=== PATIENT | female | born 1990 | race Hispanic/Latino ===

== ENCOUNTER 2021-11-09 07:59 | Inpatient (IN) | payer MEDICAID ==
[2021-11-02 15:03] LABS: BASOPHILS % (AUTO) 0.7 % (0.0-5.0); EOSINOPHILS % (AUTO) 0.8 % (0.0-8.0); HEMATOCRIT 37.3 % (36-48); LYMPHOCYTES % (AUTO) 48.7 % (21.0-51.0); MEAN CORPUSCULAR HEMOGLOBIN 29.4 pg (27.0-33.0); MEAN CORPUSCULAR HGB CONC 32.7 g/dL (32.0-36.0); MEAN CORPUSCULAR VOLUME 89.9 fL (79-99); MONOCYTES % (AUTO) 5.4 % (3.0-13.0); NEUTROPHILS % (AUTO) 44.3 % (40.0-77.0); PLATELET COUNT (AUTO) 271 K/uL (130-400); RED BLOOD CELL COUNT(AUTO) 4.15 MIL/uL (4.00-5.50); RED CELL DISTRIBUTION WIDTH 13.5 % (11.0-15.5); WHITE BLOOD COUNT (AUTO) 9.6 K/uL (4.8-10.8)
[2021-11-02 15:09] LABS: INR 0.93 (0.85-1.15); PROTHROMBIN TIME 9.8 SEC (9.6-11.6)
[2021-11-02 15:11] LABS: PARTIAL THROMBOPLASTIN TIME 22.2 SEC (26.3-35.5)
[2021-11-02 15:17] LABS: CREATININE 0.7 mg/dL (0.5-1.5); POTASSIUM 4.4 mmol/L (3.5-5.1)
[2021-11-05 14:38] VITALS: BP 113/80
[2021-11-09] VITALS (27 sets, daily range): BP systolic 109–150; BP diastolic 55–86
[~2021-11-09] VITALS: Ht 162.6 cm; Wt 70.4 kg
[~2021-11-09 07:59] MED LIST: 0.9% NACL 500ML IV.SOLN 500 ML IV SCH; ADAL40PE SQ; DULO20CA18 PO; GABA300C PO; IRON1CAP35 PO; MULT-1330 PO; NORE1PAT10 TD; TRAZ-187 PO
[2021-11-09] MEDS ORDERED: LACTATED RINGERS 1000ML 1,000 ML IV ONE (08:30)
[2021-11-09] MEDS: CEFAZOLIN SODIUM 1 GM VIAL IVP SCH ×3 (08:30→18:55)
[2021-11-09] MEDS ORDERED: SUCCINYLCHOLINE CHLORIDE 20 MG/ML 10 ML VIAL ONE (10:09)
[2021-11-09] MEDS ORDERED: FENTANYL CITRATE PF 50 MCG/1 ML 2ML VIAL ONE ×2 (10:10→12:02)
[2021-11-09] MEDS ORDERED: PROPOFOL 10 MG/ML 20ML VIAL IV ONE (10:10)
[2021-11-09] MEDS ORDERED: MIDAZOLAM HCL 1 MG/ML 2ML VIAL ONE (10:10)
[2021-11-09] MEDS ORDERED: BUPIVACAINE/PF 0.5% 30ML VIAL ONE (10:43)
[2021-11-09] MEDS ORDERED: BUPIVACAINE/PF 0.5% 10ML VIAL ONE (10:43)
[2021-11-09] MEDS ORDERED: ROCURONIUM 10MG/1ML SYR 10 MG/ML ML ONE (11:21)
[2021-11-09] MEDS ORDERED: EPHEDRINE SULFATE 50 MG/ML AMPULE ONE ×2 (11:37→13:25)
[2021-11-09] MEDS ORDERED: HYDROMORPHONE 1 MG INJ ONE ×2 (13:57→14:15)
[2021-11-09] MEDS ORDERED: MEPERIDINE-PF 25 MG/ML SYG ONE (14:33)
[2021-11-09] MEDS ORDERED: ONDANSETRON 4MG INJ ONE (14:54)
[2021-11-09] MEDS: LACTATED RINGERS 1000ML 1,000 ML IV SCH (15:54)
[2021-11-09] MEDS ORDERED: ADALIMUMAB 40 MG SQ SCH (16:00)
[2021-11-09] MEDS ORDERED: ONDANSETRON 4MG INJ IVP PRN (16:00)
[2021-11-09] MEDS ORDERED: PHARMACY COMMUNICATION MISC SCH (16:00)
[2021-11-09] MEDS: KETOROLAC 30MG VIAL (30MG/ML) IVP SCH ×2 (16:21→21:44)
[2021-11-09] MEDS: MORPHINE 4 MG SYG IVP PRN (18:54)
[2021-11-09] MEDS: TRAZODONE HCL 100 MG TABLET PO SCH (20:09)
[2021-11-09] MEDS: GABAPENTIN 300 MG CAPSULE PO SCH (20:09)
[2021-11-09] MEDS: ACETAMINOPHEN WITH CODEINE 1 TAB TAB PO PRN (20:11)
[2021-11-09] MEDS ORDERED: TRAZODONE HCL 100 MG TABLET PO SCH (21:00)
[2021-11-09] MEDS ORDERED: GABAPENTIN 300 MG CAPSULE PO SCH (21:00)
[2021-11-10 00:11] VITALS: BP 146/81
[2021-11-10] MEDS: CEFAZOLIN SODIUM 1 GM VIAL IVP SCH (00:13)
[2021-11-10] MEDS: LACTATED RINGERS 1000ML 1,000 ML IV SCH ×2 (00:13→12:00)
[2021-11-10] MEDS: MORPHINE 4 MG SYG IVP PRN ×2 (00:14→09:47)
[2021-11-10] MEDS: KETOROLAC 30MG VIAL (30MG/ML) IVP SCH ×4 (03:43→21:16)
[2021-11-10 03:44] LABS: HEMATOCRIT 27.7 % (36-48); MEAN CORPUSCULAR HEMOGLOBIN 29.4 pg (27.0-33.0); MEAN CORPUSCULAR HGB CONC 32.9 g/dL (32.0-36.0); MEAN CORPUSCULAR VOLUME 89.4 fL (79-99); RED BLOOD CELL COUNT(AUTO) 3.1 MIL/uL (4.00-5.50); RED CELL DISTRIBUTION WIDTH 13.5 % (11.0-15.5); WHITE BLOOD COUNT (AUTO) 8.6 K/uL (4.8-10.8)
[2021-11-10 03:58] LABS: CREATININE 0.5 mg/dL (0.5-1.5); POTASSIUM 3.5 mmol/L (3.5-5.1)
[2021-11-10 04:33] VITALS: BP 121/67
[2021-11-10 07:38] VITALS: BP 126/65
[2021-11-10] MEDS: GABAPENTIN 300 MG CAPSULE PO SCH ×2 (07:49→21:13)
[2021-11-10] MEDS: ACETAMINOPHEN WITH CODEINE 1 TAB TAB PO PRN ×2 (08:03→14:04)
[2021-11-10] MEDS: DULOXETINE 40 MG PO SCH (09:00)
[2021-11-10] MEDS ORDERED: HUMIRA 40 MG SQ SCH (09:00)
[2021-11-10] MEDS ORDERED: DULOXETINE HCL 40 MG PO SCH (09:00)
[2021-11-10] MEDS: [UNRECOGNIZED DRUG - OTHER] PO SCH (09:00)
[2021-11-10 11:50] VITALS: BP 145/82
[2021-11-10 16:10] VITALS: BP 113/63
[2021-11-10 20:39] VITALS: BP 134/78
[2021-11-10] MEDS: TRAZODONE HCL 100 MG TABLET PO SCH (21:14)
[2021-11-10] MEDS: TRAMADOL HCL 50 MG TABLET PO SCH (21:15)
[2021-11-10] MEDS ORDERED: DIPHENHYDRAMINE HCL 25 MG CAPSULE PO PRN (21:30)
[2021-11-11 00:35] VITALS: BP 126/71
[2021-11-11] MEDS: TRAMADOL HCL 50 MG TABLET PO SCH ×4 (03:42→21:29)
[2021-11-11] MEDS: KETOROLAC 30MG VIAL (30MG/ML) IVP SCH ×4 (03:43→22:30)
[2021-11-11 04:27] VITALS: BP 137/70
[2021-11-11 08:00] VITALS: BP 122/71
[2021-11-11] MEDS: GABAPENTIN 300 MG CAPSULE PO SCH ×2 (08:30→21:28)
[2021-11-11] MEDS: [UNRECOGNIZED DRUG - OTHER] PO SCH (08:32)
[2021-11-11] MEDS: DULOXETINE 40 MG PO SCH (08:32)
[2021-11-11 11:30] VITALS: BP 125/73
[2021-11-11 13:51] LABS: BASOPHILS % (AUTO) 0.2 % (0.0-5.0); HEMATOCRIT 28.8 % (36-48); LYMPHOCYTES % (AUTO) 33.5 % (21.0-51.0); MEAN CORPUSCULAR HEMOGLOBIN 29.9 pg (27.0-33.0); MEAN CORPUSCULAR VOLUME 90.6 fL (79-99); MONOCYTES % (AUTO) 5.2 % (3.0-13.0); PLATELET COUNT (AUTO) 177 K/uL (130-400); RED BLOOD CELL COUNT(AUTO) 3.18 MIL/uL (4.00-5.50); RED CELL DISTRIBUTION WIDTH 13.4 % (11.0-15.5); WHITE BLOOD COUNT (AUTO) 8.2 K/uL (4.8-10.8)
[2021-11-11 16:07] VITALS: BP 126/76
[2021-11-11] MEDS: ACETAMINOPHEN WITH CODEINE 1 TAB TAB PO PRN (19:37)
[2021-11-11 20:50] VITALS: BP 129/76
[2021-11-11] MEDS: TRAZODONE HCL 100 MG TABLET PO SCH (21:29)
[2021-11-12 01:05] VITALS: BP 124/64
[2021-11-12] MEDS: TRAMADOL HCL 50 MG TABLET PO SCH ×3 (03:29→15:59)
[2021-11-12] MEDS: KETOROLAC 30MG VIAL (30MG/ML) IVP SCH ×3 (04:26→16:00)
[2021-11-12 08:18] VITALS: BP 136/78
[2021-11-12] MEDS: GABAPENTIN 300 MG CAPSULE PO SCH (08:47)
[2021-11-12] MEDS: DULOXETINE 40 MG PO SCH (09:00)
[2021-11-12] MEDS: [UNRECOGNIZED DRUG - OTHER] PO SCH (09:00)
[2021-11-12 11:42] VITALS: BP 126/74
[2021-11-12] MEDS: ACETAMINOPHEN WITH CODEINE 1 TAB TAB PO PRN (13:16)
[2021-11-12 16:52] VITALS: BP 125/77
[2021-11-12] MEDS ORDERED: CETIRIZINE HCL 5 MG TABLET PO SCH (17:30)
[2021-11-12] MEDS ORDERED: CETIRIZINE HCL 5 MG TABLET PO ONE (17:54)
== END 2021-11-12 20:40 | disposition home health service (06) | DRG 385 ==
LOC: DAH 07:59 → 4AH 08:00 → OBSVTOIN 08:00
PROVIDERS: ADMIT Surgery; ATTEND Surgery
PROC: 0JB80ZZ Excision of Abdomen Subcutaneous Tissue and Fascia, Open Approach (ICD-10-PCS; 2021-11-09)
PROC: 0JBF0ZZ Excision of Left Upper Arm Subcutaneous Tissue and Fascia, Open Approach (ICD-10-PCS; 2021-11-09)
PROC: 0JBD0ZZ Excision of Right Upper Arm Subcutaneous Tissue and Fascia, Open Approach (ICD-10-PCS; 2021-11-09)
PROC: 0JB80ZZ Excision of Abdomen Subcutaneous Tissue and Fascia, Open Approach (ICD-10-PCS; principal; 2021-11-09 10:11)
DX: M79.3 Panniculitis, unspecified (principal)
CPT/HCPCS: 36415; 71045; 80048; 84703; 85025; 85027; 85610; 85730; 86850; 86900; 86901; 87426; G0378; J0330; J0690; J1170; J1885; J2175; J2250; J2270; J2405; J2704; J3010; J3490; J7120; Q0163

== ENCOUNTER 2021-11-16 20:47 | Inpatient (IN) | payer MEDICAID ==
[~2021-11-16] VITALS: Ht 162.6 cm; Wt 68.0 kg
[~2021-11-16 20:47] MED LIST changes: -0.9% NACL 500ML IV.SOLN 500 ML IV SCH
[2021-11-16 21:25] LABS: MEAN CORPUSCULAR HEMOGLOBIN 29.4 pg (27.0-33.0); MEAN CORPUSCULAR HGB CONC 34.1 g/dL (32.0-36.0); MEAN CORPUSCULAR VOLUME 86.3 fL (79-99); RED BLOOD CELL COUNT(AUTO) 3.13 MIL/uL (4.00-5.50); RED CELL DISTRIBUTION WIDTH 12.9 % (11.0-15.5); WHITE BLOOD COUNT (AUTO) 14.8 K/uL (4.8-10.8)
[2021-11-16] MEDS ORDERED: ACETAMINOPHEN 500 MG TABLET PO ONE (21:30)
[2021-11-16] MEDS ORDERED: ZOSYN 3.375GM +NS 50ML IV SCH (21:30)
[2021-11-16] MEDS ORDERED: IBUPROFEN 800 MG TAB PO ONE (21:30)
[2021-11-16] MEDS ORDERED: 0.9%NACL 1000ML 1,641 ML IV ONE (21:30)
[2021-11-16 21:44] LABS: CREATININE 0.7 mg/dL (0.5-1.5); POTASSIUM 3.3 mmol/L (3.5-5.1)
[2021-11-16 21:48] LABS: ALBUMIN 2.5 g/dL (3.5-5.0); CRP QUANTITATIVE 61.9 mg/L (0.00-9.0); TOTAL PROTEIN, SERUM 6.8 g/dL (6.0-8.3)
[2021-11-16 21:56] LABS: APPEARANCE,URINE Clear (CLEAR); BILIRUBIN,URINE Negative (NEGATIVE); COLOR,URINE Yellow (YELLOW); GLUCOSE, URINE (UA) Negative (NEGATIVE); KETONES,URINE 40 mg/dL (NEGATIVE); LEUKOCYTE ESTERASE ,URINE Negative (NEGATIVE); NITRATE,URINE Negative (NEGATIVE); OCCULT BLOOD,URINE Negative (NEGATIVE); PH,URINE >=9.0 (5.0-8.0); PROTEIN,URINE Negative (NEGATIVE)
[2021-11-16 22:01] LABS: HCG,QUALITATIVE URINE NEGATIVE (NEGATIVE)
[2021-11-16 22:10] LABS: BACTERIA,URINE Rare /HPF (None Seen); RBC,URINE 0-1 /HPF (0-1); SQUAMOUS EPITHELIAL CELL,UR Few /HPF (0-2); WBC,URINE 0-1 /HPF (0-1)
[2021-11-16] MEDS ORDERED: POTASSIUM BICARB/CIT AC 25 MEQ TABLET.EFF ONE (22:26)
[2021-11-16] MEDS ORDERED: POTASSIUM BICARB/CIT AC 25 MEQ TABLET.EFF PO ONE (22:30)
[2021-11-16] MEDS ORDERED: ACETAMINOPHEN 650 MG SUPPOSITORY RC PRN (23:00)
[2021-11-16] MEDS ORDERED: LACTATED RINGERS 1000ML 1,641 ML IV ONE (23:00)
[2021-11-16] MEDS ORDERED: POTASSIUM CHLORIDE 20MEQ/100ML 100 ML IV PRN (23:00)
[2021-11-16] MEDS ORDERED: LIDOCAINE HCL-MPF 1% 2ML VIAL IV PRN (23:00)
[2021-11-16] MEDS: LACTATED RINGERS 1000ML 1,000 ML IV SCH (23:20)
[2021-11-17] MEDS: ONDANSETRON 4MG INJ IV PRN ×2 (03:04→21:03)
[2021-11-17] MEDS: MORPHINE 2 MG SYG IV PRN ×3 (03:04→13:12)
[2021-11-17] MEDS: ZOSYN 3.375GM+NS 50ML 50 ML IV SCH ×3 (05:07→20:48)
[2021-11-17 06:20] LABS: BASOPHILS % (AUTO) 0.3 % (0.0-5.0); EOSINOPHILS % (AUTO) 1.7 % (0.0-8.0); HEMATOCRIT 26.8 % (36-48); LYMPHOCYTES % (AUTO) 14.3 % (21.0-51.0); MEAN CORPUSCULAR HEMOGLOBIN 29.5 pg (27.0-33.0); MEAN CORPUSCULAR HGB CONC 33.6 g/dL (32.0-36.0); MEAN CORPUSCULAR VOLUME 87.9 fL (79-99); MONOCYTES % (AUTO) 6.4 % (3.0-13.0); NEUTROPHILS % (AUTO) 76.6 % (40.0-77.0); PLATELET COUNT (AUTO) 224 K/uL (130-400); RED BLOOD CELL COUNT(AUTO) 3.05 MIL/uL (4.00-5.50); RED CELL DISTRIBUTION WIDTH 13.1 % (11.0-15.5); WHITE BLOOD COUNT (AUTO) 19.2 K/uL (4.8-10.8)
[2021-11-17 06:30] LABS: CREATININE 0.6 mg/dL (0.5-1.5); MAGNESIUM 1.6 mg/dL (1.80-2.40); PHOSPHORUS 3.6 mg/dL (2.5-4.9); POTASSIUM 3.8 mmol/L (3.5-5.1)
[2021-11-17 07:33] LABS: PROTHROMBIN TIME 10.9 SEC (9.6-11.6)
[2021-11-17 07:34] LABS: PARTIAL THROMBOPLASTIN TIME 25.4 SEC (26.3-35.5)
[2021-11-17] MEDS ORDERED: LIDOCAINE HCL 1% 10 ML VIAL ONE (08:05)
[2021-11-17] MEDS: LACTATED RINGERS 1000ML 1,000 ML IV SCH ×2 (08:33→18:15)
[2021-11-17] MEDS: FAMOTIDINE 20MG VIAL IV SCH ×2 (08:33→20:48)
[2021-11-17 12:31] VITALS: BP 97/61
[2021-11-17 16:00] VITALS: BP 137/75
[2021-11-17] MEDS: ACETAMINOPHEN 325 MG TAB PO PRN (16:26)
[2021-11-17] MEDS ORDERED: VANCOMYCIN PROTOCOL PER PHARMACY IV PRN (18:00)
[2021-11-17] MEDS ORDERED: 0.9% NACL 250ML 250 ML ONE (18:10)
[2021-11-17] MEDS: VANCOMYCIN 1G/250ML KIT 250 ML IV SCH (18:12)
[2021-11-17 20:00] VITALS: BP 125/60
[2021-11-17] MEDS: MORPHINE 4 MG SYG IV PRN (21:04)
[2021-11-18] VITALS: BP 112/51
[2021-11-18 04:00] VITALS: BP 132/73
[2021-11-18] MEDS: LACTATED RINGERS 1000ML 1,000 ML IV SCH ×3 (05:00→21:02)
[2021-11-18] MEDS: ZOSYN 3.375GM+NS 50ML 50 ML IV SCH ×3 (05:23→21:00)
[2021-11-18] MEDS: VANCOMYCIN 1G/250ML KIT 250 ML IV SCH (05:57)
[2021-11-18 07:37] LABS: HEMATOCRIT 25.6 % (36-48); MEAN CORPUSCULAR HEMOGLOBIN 29.4 pg (27.0-33.0); MEAN CORPUSCULAR HGB CONC 33.2 g/dL (32.0-36.0); MEAN CORPUSCULAR VOLUME 88.6 fL (79-99); PLATELET COUNT (AUTO) 255 K/uL (130-400); RED BLOOD CELL COUNT(AUTO) 2.89 MIL/uL (4.00-5.50); RED CELL DISTRIBUTION WIDTH 12.9 % (11.0-15.5); WHITE BLOOD COUNT (AUTO) 18.6 K/uL (4.8-10.8)
[2021-11-18 08:00] VITALS: BP 126/73
[2021-11-18 08:02] LABS: CREATININE 0.6 mg/dL (0.5-1.5); EOSINOPHILS % (MANUAL) 2 % (1-6); LYMPHOCYTES % (MANUAL) 14 % (22-44); MAN.DIFF COMMENT-IMPRESSION MANUAL DIFFERENTIAL; MONOCYTES % (MANUAL) 3 % (2-9); PLATELET MORPHOLOGY COMMENT ADEQUATE; POTASSIUM 3.9 mmol/L (3.5-5.1); SEGMENTED NEUTROPHILS % 81 % (40-70)
[2021-11-18] MEDS ORDERED: MAGNESIUM 2GM PREMIX 50ML 50 ML IV PRN (08:30)
[2021-11-18] MEDS ORDERED: MAGNESIUM 2GM PREMIX 50ML 50 ML IV ONE (08:32)
[2021-11-18] MEDS: ENOXAPARIN SODIUM 30 MG/0.3 ML SQ SCH (08:34)
[2021-11-18] MEDS: FAMOTIDINE 20MG VIAL IV SCH ×2 (08:34→21:00)
[2021-11-18] MEDS: MORPHINE 4 MG SYG IV PRN (08:35)
[2021-11-18 12:00] VITALS: BP 125/67
[2021-11-18 16:00] VITALS: BP 139/76
[2021-11-18] MEDS: POLYETHYLENE GLYCOL 3350 17 GM POWD.PACK PO SCH (17:10)
[2021-11-18] MEDS ORDERED: COMPOUND IV REFRIGERATED 1 EACH IVSOLN MISC PRN (18:00)
[2021-11-18] MEDS: VANCOMYCIN 1.25 GM/250 ML BAG 250 ML IV SCH (18:13)
[2021-11-18 20:00] VITALS: BP 115/64
[2021-11-18] MEDS: ACETAMINOPHEN 325 MG TAB PO PRN (22:02)
[2021-11-19] VITALS: BP 108/62
[2021-11-19 04:00] VITALS: BP 138/79
[2021-11-19] MEDS: ZOSYN 3.375GM+NS 50ML 50 ML IV SCH (05:21)
[2021-11-19 05:35] LABS: PHOSPHORUS 3.7 mg/dL (2.5-4.9)
[2021-11-19 06:10] LABS: HEMATOCRIT 24.1 % (36-48); MEAN CORPUSCULAR HEMOGLOBIN 29.4 pg (27.0-33.0); MEAN CORPUSCULAR HGB CONC 32.4 g/dL (32.0-36.0); MEAN CORPUSCULAR VOLUME 90.9 fL (79-99); PLATELET COUNT (AUTO) 241 K/uL (130-400); RED BLOOD CELL COUNT(AUTO) 2.65 MIL/uL (4.00-5.50); WHITE BLOOD COUNT (AUTO) 12.4 K/uL (4.8-10.8)
[2021-11-19 06:25] LABS: CREATININE 0.6 mg/dL (0.5-1.5); POTASSIUM 3.9 mmol/L (3.5-5.1)
[2021-11-19 07:04] LABS: EOSINOPHILS % (MANUAL) 6 % (1-6); LYMPHOCYTES % (MANUAL) 31 % (22-44); MAN.DIFF COMMENT-IMPRESSION MANUAL DIFFERENTIAL; MONOCYTES % (MANUAL) 2 % (2-9); PLATELET MORPHOLOGY COMMENT ADEQUATE; SEGMENTED NEUTROPHILS % 61 % (40-70)
[2021-11-19] MEDS: VANCOMYCIN 1.25 GM/250 ML BAG 250 ML IV SCH (07:50)
[2021-11-19 08:00] VITALS: BP 128/68
[2021-11-19] MEDS: POLYETHYLENE GLYCOL 3350 17 GM POWD.PACK PO SCH (09:15)
[2021-11-19] MEDS: FAMOTIDINE 20MG VIAL IV SCH ×2 (09:16→21:57)
[2021-11-19] MEDS: ENOXAPARIN SODIUM 30 MG/0.3 ML SQ SCH (09:16)
[2021-11-19 12:37] VITALS: BP 140/64
[2021-11-19 16:51] VITALS: BP 138/77
[2021-11-19 19:00] VITALS: BP 142/76
[2021-11-20] VITALS (7 sets, daily range): BP systolic 136–165; BP diastolic 65–85
[2021-11-20 05:58] LABS: HEMATOCRIT 23.7 % (36-48); MEAN CORPUSCULAR HEMOGLOBIN 28.8 pg (27.0-33.0); MEAN CORPUSCULAR HGB CONC 32.9 g/dL (32.0-36.0); MEAN CORPUSCULAR VOLUME 87.5 fL (79-99); PLATELET COUNT (AUTO) 270 K/uL (130-400); RED BLOOD CELL COUNT(AUTO) 2.71 MIL/uL (4.00-5.50); RED CELL DISTRIBUTION WIDTH 12.8 % (11.0-15.5); WHITE BLOOD COUNT (AUTO) 8.5 K/uL (4.8-10.8)
[2021-11-20] MEDS: ACETAMINOPHEN 325 MG TAB PO PRN (06:02)
[2021-11-20 06:11] LABS: CREATININE 0.6 mg/dL (0.5-1.5)
[2021-11-20 07:55] LABS: EOSINOPHILS % (MANUAL) 5 % (1-6); LYMPHOCYTES % (MANUAL) 23 % (22-44); MAN.DIFF COMMENT-IMPRESSION MANUAL DIFFERENTIAL; MONOCYTES % (MANUAL) 5 % (2-9); PLATELET MORPHOLOGY COMMENT ADEQUATE; SEGMENTED NEUTROPHILS % 67 % (40-70)
[2021-11-20] MEDS: ENOXAPARIN SODIUM 30 MG/0.3 ML SQ SCH (08:12)
[2021-11-20] MEDS: FAMOTIDINE 20MG VIAL IV SCH ×2 (08:12→20:57)
[2021-11-20] MEDS: LEVOFLOXACIN 750 MG/D5W 150 ML 150 ML IV SCH (08:12)
[2021-11-20] MEDS: POLYETHYLENE GLYCOL 3350 17 GM POWD.PACK PO SCH (08:13)
[2021-11-21] VITALS: BP 133/89
[2021-11-21 04:00] VITALS: BP 136/75
[2021-11-21 08:00] VITALS: BP 157/102
[2021-11-21] MEDS: POLYETHYLENE GLYCOL 3350 17 GM POWD.PACK PO SCH (09:00)
[2021-11-21] MEDS: FAMOTIDINE 20MG VIAL IV SCH (10:20)
[2021-11-21] MEDS: LEVOFLOXACIN 750 MG/D5W 150 ML 150 ML IV SCH (10:20)
[2021-11-21] MEDS: ENOXAPARIN SODIUM 30 MG/0.3 ML SQ SCH (10:20)
[2021-11-21] MEDS ORDERED: LEVO750T46 PO (11:53)
[2021-11-21 12:00] VITALS: BP 148/77
== END 2021-11-21 15:27 | disposition home or self-care (01) | DRG 721 ==
LOC: EDH 20:47 → EDHIP 20:48 → 3CH 11-17 12:31
PROVIDERS: ADMIT Internal Medicine; ATTEND Internal Medicine
DX: T81.40XA Infection following a procedure, unspecified, initial encounter (principal); A41.9 Sepsis, unspecified organism; E87.6 Hypokalemia; L73.2 Hidradenitis suppurativa; B96.89 Other specified bacterial agents as the cause of diseases classified elsewhere; L03.90 Cellulitis, unspecified; Z90.721 Acquired absence of ovaries, unilateral; Z20.822 Contact with and (suspected) exposure to COVID-19; Z98.84 Bariatric surgery status; Z90.49 Acquired absence of other specified parts of digestive tract; Z82.5 Family history of asthma and other chronic lower respiratory diseases; Z82.49 Family history of ischemic heart disease and other diseases of the circulatory system; Y83.8 Other surgical procedures as the cause of abnormal reaction of the patient, or of later complication, without mention of misadventure at the time of the procedure; Y92.89 Other specified places as the place of occurrence of the external cause
CPT/HCPCS: 36415; 71045; 74176; 80048; 80053; 80202; 81001; 81025; 83605; 83735; 84100; 85025; 85027; 85610; 85730; 86140; 86850; 86900; 86901; 87040; 87077; 87186; 87635; 87804; 93005; C9803; G0378; J1650; J1956; J2270; J2405; J2543; J3370; J3475; J3480; J3490; J7030; J7050; J7120

== ENCOUNTER → 2023-05-26 | Outpatient (CLI) | payer MEDICAID ==
[~2023-05-26] MED LIST changes: -ADAL40PE SQ; +DICY-20 PO; -DULO20CA18 PO; -GABA300C PO; +IOHEXOL-350 75 ML VIAL IV ONE; -IRON1CAP35 PO; +LEVO-70 PO; -MULT-1330 PO; -NORE1PAT10 TD; -TRAZ-187 PO
== END | disposition home or self-care (01) ==
LOC: RAH 07:41
PROVIDERS: ATTEND Surgery
DX: K25.5 Chronic or unspecified gastric ulcer with perforation (principal); M47.815 Spondylosis without myelopathy or radiculopathy, thoracolumbar region; I70.90 Unspecified atherosclerosis; Z90.49 Acquired absence of other specified parts of digestive tract
CPT/HCPCS: 74177; Q9967